=== PATIENT | male | born 1970 | race Caucasian/White ===

== ENCOUNTER 2021-08-21 16:24 | Emergency (ER) | payer BC ==
[~2021-08-21] VITALS: Ht 177.8 cm; Wt 111.1 kg
== END 2021-08-21 21:27 | disposition home or self-care (01) ==
LOC: ER1 16:24
DX: U07.1 COVID-19 (principal); Z23 Encounter for immunization; K21.9 Gastro-esophageal reflux disease without esophagitis; J45.909 Unspecified asthma, uncomplicated
CPT/HCPCS: 99283; M0245